=== PATIENT | female | born 1960 | race Caucasian/White ===

== ENCOUNTER 2016-06-06 10:00 | Inpatient (IN) | payer BC ==
[2016-06-02 14:06] VITALS: BMI 26.9
--- NOTE | 2016-06-02 14:38 | PAT Medication Instructions ---
Service Date Jun 02, 2016. Current Home Medication List Amlodipine (Norvasc), 5 MG PO QAM Calcium Carbonate-Cholecalcife (Caltrate 600+D), 1 TAB PO QAM Docusate Sodium (Docusate Sodium), 2 CAP PO QAM Esomeprazole Magnesium (Nexium), 40 MG PO QAM Hydrocodone/Acetaminophen 10MG/325MG ([place] 10MG/325MG), 1-2 TABS PO Q4H PRN for Pain Meloxicam (Mobic), 7.5 MG PO BID Morphine Sulfate (Ms Contin), 30 MG PO Q12 PRN for Pain Multivitamin (Multivitamin), 1 TAB PO QAM Probiotic Product (Probiotic), 1 CAP PO QAM Rosuvastatin Calcium (Crestor), 5 MG PO HS Medication Instructions For Your Scheduled Surgery - Hold the following medications the morning of surgery: Multivitamin (Multivitamin), 1 TAB PO QAM Probiotic Product (Probiotic), 1 CAP PO QAM Calcium Carbonate-Cholecalcife (Caltrate 600+D), 1 TAB PO QAM Docusate Sodium (Docusate Sodium), 2 CAP PO QAM Meloxicam (Mobic), 7.5 MG PO BID (not told to stop by surgeon) - Take the following medications the morning of surgery with a sip of water: Morphine Sulfate (Ms Contin), 30 MG PO Q12 PRN for Pain (can take up to four hours prior to surgery if needed) Hydrocodone/Acetaminophen 10MG/325MG ([place] 10MG/325MG), 1-2 TABS PO Q4H PRN for Pain (can take up to four hours prior to surgery if needed) Esomeprazole Magnesium (Nexium), 40 MG PO QAM Amlodipine (Norvasc), 5 MG PO QAM - Take the following medications as scheduled the night before surgery: Rosuvastatin Calcium (Crestor), 5 MG PO HS Morphine Sulfate (Ms Contin), 30 MG PO Q12 PRN for Pain Hydrocodone/Acetaminophen 10MG/325MG ([place] 10MG/325MG), 1-2 TABS PO Q4H PRN for Pain Meloxicam (Mobic), 7.5 MG PO BID If you have any questions please call us at [phone] or [phone] ( Heidi) or [phone]
[2016-06-02 14:47] VITALS: BMI 26.0
[2016-06-02 15:17] LABS: BASO % 0.3 %; BASO ABS # 0.02 K/uL (0-0.2); COMPLETE YES; EOS % 1.6 %; HEMATOCRIT 40.2 % (37-47); LYMPH ABS # 2.96 K/uL (1.2-3.4); MEAN CELL VOLUME 86.8 fL (80-100); MEAN CORPUSCULAR HEMOGLOBIN 30.2 pg (25-34); MEAN CORPUSCULAR HGB CONC 34.8 g/dl (32-36); MEAN PLATELET VOLUME 8.9 fL (7.4-10.4); MONO % 7.8 %; NEUT % 42.3 %; PLATELET COUNT 280 K/uL (130-400); RED BLOOD COUNT 4.63 M/uL (4.2-5.4); WHITE BLOOD COUNT 6.17 K/uL (4.8-10.8)
[2016-06-02 15:19] LABS: URINE APPEARANCE CLEAR (CLEAR); URINE BILIRUBIN NEG (NEG); URINE COLOR YELLOW; URINE NITRITE NEG (NEG); URINE PH 7.5 (4.5-7.5); URINE SPECIFIC GRAVITY 1.006 (1.000-1.030); UROBILINOGEN NEG (NEG)
[2016-06-02 15:21] LABS: MANUAL MICROSCOPIC REQUIRED? NO; REVIEW REQ? NO
--- NOTE | 2016-06-02 15:33 | DIAGNOSTIC IMAGING REPORT ---
CHEST 2 VIEWS ROUTINE CLINICAL HISTORY: Preoperative evaluation. COMPARISON STUDY: No previous studies for comparison. FINDINGS: Incidental note is made of an anterior cervical spine fusion and cholecystectomy clips. Lung volumes are normal. Lungs are clear. There is no pneumothorax or pleural effusion. Cardiac size is normal. Mediastinal contours are normal. There is no evidence of pulmonary edema. IMPRESSION: No acute cardiopulmonary findings. Electronically signed by: Reinier Cunningham M.D. 06/02/2016 3:31 PM Dictated Date/Time: 06/02/2016 3:30 PM
[2016-06-02 15:50] LABS: BUN/CREATININE RATIO 19.6 (10-20); CALCIUM 8.8 mg/dl (8.5-10.1); CREATININE 0.68 mg/dl (0.60-1.20); POTASSIUM 3.9 mmol/L (3.5-5.1)
[2016-06-06] VITALS (7 sets, daily range): BP systolic 109–128; BP diastolic 65–82; PULSE 73–102; TEMP 36.7–36.9; O2SAT 97–100; Ht 147.3 cm; Wt 58.3 kg
[~2016-06-06] VITALS: Ht 147.3 cm; Wt 58.3 kg
[~2016-06-06 10:00] MED LIST: AMLO-110 PO; CALC-354 PO; CEFAZOLIN 2000 MG/60 ML D5W 60 ML IV SCH; CeleBREX 200 MG CAP PO SCH; DOCU100C31 PO; HYDR-4079 PO; LACTATED RINGER'S 1000ML 1,000 ML IV SCH; MELO7.5T5 PO; MISCCAP80 PO; MORP30TA23 PO; MULT-506 PO; NXM/40 PO; PREGABALIN 75 MG CAP PO SCH; ROSU5TAB PO
[2016-06-06] MEDS ORDERED: ONDANSETRON INJ 2 MG/ML 2 ML VIAL IV PRN ×2 (10:15→14:30)
[2016-06-06] MEDS ORDERED: EpHEDrine SULFATE INJ 50 MG/ML AMP IV PRN (10:15)
[2016-06-06] MEDS ORDERED: ATROPINE SULFATE 0.1 MG/ML 5ML SYR IV PRN (10:15)
--- NOTE | 2016-06-06 12:07 | History and Physical ---
History & Physical Date Jun 06, 2016. Chief Complaint LBP and left leg pain History of Present Illness The patient is a 56 year old female with complaints of above who has severe pain due to a L foraminal HNP with L3 nerve root compression. Her pain could not be controlled as outpatient with oral steroids or narcotics. mild trouble walking due to LLE weakness. Past Medical/Surgical History HTN hi chol GERD cervical fusion hx tob use knee surgery csections Additional History Hepatic Disease: No Endocrine Disorder: No Kidney Disease: No Hypertension: Yes Heart Disease: No Bleeding Tendencies: No Infectious Diseases: No Allergies Coded Allergies: Adhesives (Verified Allergy, Mild, RED RASH AND SORE BLISTER, 06/06/16) Meperidine (Verified Allergy, Mild, VOMITTING, 06/06/16) Home Medications Scheduled Amlodipine (Norvasc), 5 MG PO QAM Calcium Carbonate-Cholecalcife (Caltrate 600+D), 1 TAB PO QAM Docusate Sodium (Docusate Sodium), 2 CAP PO QAM Esomeprazole Magnesium (Nexium), 40 MG PO QAM Meloxicam (Mobic), 7.5 MG PO BID Multivitamin (Multivitamin), 1 TAB PO QAM Probiotic Product (Probiotic), 1 CAP PO QAM Rosuvastatin Calcium (Crestor), 5 MG PO HS Scheduled PRN Hydrocodone/Acetaminophen 10MG/325MG ([place] 10MG/325MG), 1-2 TABS PO Q4H PRN for Pain Morphine Sulfate (Ms Contin), 30 MG PO Q12 PRN for Pain Physical Examination Skin: warm/dry Eyes: normal inspection ENT: normal ENT inspection Head: normocephalic, atraumatic Neck: supple, trachea midline Respiratory/Chest: lungs clear, no respiratory distress Cardiovascular: regular rate, rhythm Back: normal inspection Extremities: normal inspection, normal range of motion Neurologic/Psych: no motor/sensory deficits, alert, normal reflexes, oriented x 3 Diagnosis L L3-4 foraminal HNP Plan of Treatment L3-4 laminectomy, facetectomy and fusion
[2016-06-06] MEDS ORDERED: MIDAZOLAM HCL 1 MG/ML 2ML VIAL ONE (12:18)
[2016-06-06] MEDS ORDERED: FENTANYL CITRATE INJ 50 MCG/1 ML 2 ML VIAL ONE (12:18)
[2016-06-06] MEDS ORDERED: GLYCOPYRROLATE INJ 0.2 MG/ML VIAL ONE (13:16)
[2016-06-06] MEDS ORDERED: ONDANSETRON INJ 2 MG/ML 2 ML VIAL ONE (13:16)
[2016-06-06] MEDS ORDERED: DEXAMETHASONE SOD INJ 4 MG/ML VIAL ONE (13:16)
[2016-06-06] MEDS ORDERED: PROPOFOL IV EMULSION 10 MG/ML 20 ML VIAL IV ONE (13:16)
[2016-06-06] MEDS ORDERED: NEOSTIGMINE METHYLSULFATE 1 MG/ML 10ML VIAL ONE (13:16)
[2016-06-06] MEDS ORDERED: LIDOCAINE HCL 2% 2 ML VIAL (20MG/ML) ONE (13:16)
[2016-06-06] MEDS ORDERED: ROCURONIUM BROMIDE 10 MG/ML 5 ML VIAL ONE (13:16)
[2016-06-06] MEDS ORDERED: THROMBIN FOR SOLN 20000 UNIT KIT TOP ONE (13:35)
[2016-06-06] MEDS ORDERED: THROMBIN 5000 UNITS KIT TOP ONE (13:35)
[2016-06-06] MEDS ORDERED: BUPIVACAINE/EPINEPHRINE 0.5% MPF 1:200,000 30 ML VIAL INJ ONE (13:35)
[2016-06-06] MEDS ORDERED: BACITRACIN 50000 UNIT VIAL IR ONE (13:35)
[2016-06-06] MEDS ORDERED: PHENYLEPHRINE 100MCG/ML 5ML SYR ONE (13:39)
[2016-06-06] MEDS ORDERED: FLOSEAL HEMOSTATIC MATRIX 10ML TOP ONE (14:07)
[2016-06-06] MEDS ORDERED: HYDR-4079 PO (14:12)
--- NOTE | 2016-06-06 14:13 | Discharge Instructions ---
Discharge Instructions Admission Reason for Admission: Lumbar Spinal Stenosis Discharge Discharge Diagnosis / Problem: Lumbar Stenosis Discharge Goals Goal(s): Decrease discomfort, Improve function, Increase independence Activity Recommendations Activity Limitations: as noted below Lifting Limitations: no more than 5 pounds Exercise/Sports Limitations: until after follow-up appointment May Resume Sexual Activity: after follow-up appointment Shower/Bathe: may shower/bathe in 3 days . Instructions / Follow-Up Instructions / Follow-Up ACTIVITY RECOMMENDATIONS: SELF CARE INSTRUCTIONS AFTER THORACIC/LUMBAR FUSIONS 1. You may walk to your tolerance. It is good exercise for your legs and back. Expect some back and intermittent leg aches and pains. 2. You may perform "counter-top" level activities (make a sandwich, kellen with a project, etc.). 3. No bending or lifting of more than 10 pounds or back twisting of any nature (roll like a log when turning in bed). 4. You may ride in a car for 20-30 minutes at a time. No driving until after your first visit with your doctor. 5. Frequent changes of position and restricting sitting to 30 minutes at a time will help limit the amount of back spasms and stiffness you may experience. 6. You may discontinue the use of ambulatory aids (cane, crutches, etc.) once your strength and confidence allow. 7. You may petroleum inspector supervisor the shower and let water strike your incision when you arrive home at least once daily. Do not take a tub bath, sit in a hot tub or go into a swimming pool until after your first recheck in the office. SPECIAL CARE INSTRUCTIONS: VERY IMPORTANT TO READ AND REVIEW A. Your surgical incision has been closed with a cosmetic suture under the skin that will dissolve in about 6 weeks. In 14 days, you can use a pair of clean scissors and cut the suture that is left outside of the skin at the ends of your incision. 1. The small skin tapes can be removed 7 days after surgery if they have not fallen off by that point. 2. You may keep the wound open to air as much as possible to promote healing after post-op day number 5 unless told otherwise by your doctor. 3. If you think the wound looks like it is becoming infected (redness or worsening drainage) and/or you are experiencing fever, chill or worsening back pain and muscle spasms, contact the office so that we may evaluate you as soon as possible. B. Complications are uncommon, but please contact us if you have any signs or symptoms of: 1. wound infection (fever higher than 102.5 degrees F, redness, separation of wound, drainage, or increasing pain from the incision) 2. blood clots in legs (pain, swelling, redness and warmth in legs) 3. urinary tract infection (fever higher than 102.5 degrees F, burning upon urination or increased frequency of urination) 4. nerve problems (inability to walk on your toes or heels, numbness, loss of bowel or bladder control) 5. any other symptoms that concern you C. Please call the office at if you have any concerns or questions about your operation or recovery. D. No smoking! Smoking drastically decreases the chance of a solid fusion. E. Do not take any anti-inflammatory medications (Indocin, Advil, Motrin, Aspirin, Naprosyn, etc.) as these may inhibit the chance of a solid fusion. Tylenol is okay to take for pain. MANAGING PAIN AFTER SPINAL SURGERY 1. Narcotic medication is intended for short-term use and will be provided for surgical pain. Surgical pain usually lasts for a period of 4-6 weeks. Narcotic medication includes Percocet, Vicodin, Darvocet, Tylenol #3 or Lortab. 2. Longer-term pain is more appropriately treated with non-narcotic medication such as Tylenol ES. 3. Muscle spasm is not appropriately treated with narcotics. Muscle relaxers such as Soma, Flexeril or Skelaxin can be used along with Tylenol ES. 4. Remember that we all live with some "aches and pains". This is not unusual or uncommon after an injury or as we get older. a. Back pain is expected and may include muscle spasms for 4 to 6 weeks after surgery. The pain should gradually improve. If the pain worsens for no apparent reason, please contact the office. b. Intermittent leg pain may also be experienced and should not be concerned about unless it worsens for no apparent reason. If so, please contact the office. 5. We will provide appropriate medication within the normal guidelines of their prescribed use. We will also be very cautious and aware of potential abuse and extended duration of patients' medication needs. a. Pain medications are for your comfort and to assist with sleep and rest so that the tissue can heal. They are not provided in order to return to normal activity and should not be used through the day. To do so or worsening pain at night can result from ongoing tissue damage and development of tolerance to the prescribed medicine. 6. Please allow 2-3 days to process refills. Prescriptions will not be mailed but must be picked up at the office. FOLLOW UP VISIT: Keep your scheduled follow-up appointment. Any questions, please call the office at . Current Hospital Diet Patient's current hospital diet: Discharge Diet Recommended Diet: Regular Diet Procedures Procedures Performed: L3-L4 Decompression, Posterior Spinal Fusion, Instrumentation, Interbody Fusion With Application of Interbody Cage at L3-L4; Ateriocyte Pending Studies Studies pending at discharge: no Medical Emergencies . Who to Call and When: Medical Emergencies: If at any time you feel your situation is an emergency, please call 911 immediately. . Non-Emergent Contact Non-Emergency issues call your: Surgeon Call Non-Emergent contact if: temperature is above 101, your pain is not controlled, your pain is worsening, your pain is unusual for you, your pain is concerning you, wound has increased drainage, wound has increased redness, wound has increased pain, you have any medication questions . "Provider Documentation" section prepared by Cas Basurto. VTE Core Measure Inpt VTE Proph given/why not?: Goldie Nolasco
[2016-06-06] MEDS: SODIUM CHLORIDE 0.9% 1000ML 1,000 ML IV SCH (14:19)
[2016-06-06] MEDS ORDERED: SODIUM CHLORIDE 0.9% 1000ML 1,000 ML IV SCH (14:19)
--- NOTE | 2016-06-06 14:19 | [facility] Post Operative Brief Note ---
Immediate Operative Summary Operative Date Jun 06, 2016. Pre-Operative Diagnosis Left L3-4 foraminal herniated nucleus pulposus Post-Operative Diagnosis Same as pre-operative diagnosis Procedure(s) Performed L3-L4 Decompression, Posterior Spinal Fusion, Instrumentation, Interbody Fusion With Application of Interbody Cage at L3-L4; Ateriocyte Surgeon Dr. Juice Rueda Production Mechanic Surgeon(s) Cas Basurto PA-C Estimated Blood Loss 200ml Findings dict Specimens None per surgeon
[2016-06-06] MEDS: FENTANYL CITRATE INJ 50 MCG/1 ML 2 ML VIAL IV PRN ×4 (14:21→14:36)
[2016-06-06] MEDS ORDERED: NALOXONE HCL 0.4 MG/1 ML VIAL/CARP IV PRN ×2 (14:30)
[2016-06-06] MEDS ORDERED: METOCLOPRAMIDE HCL INJ 5 MG/ML 2 ML VIAL IV PRN (14:30)
[2016-06-06] MEDS ORDERED: hydrOXYzine HCL 25 MG TAB PO PRN (14:30)
[2016-06-06] MEDS ORDERED: PROMETHAZINE HCL INJ 12.5 MG in SODIUM CHLORIDE 0.9% 50ML 50 ML IV PRN (14:30)
[2016-06-06] MEDS ORDERED: HYDROmorphone HCL 0.5MG/ML 50 ML CASSETTE IV PRN (14:30)
[2016-06-06] MEDS ORDERED: FAMOTIDINE 20 MG TAB PO PRN (14:30)
[2016-06-06] MEDS ORDERED: MoRPHine SULFATE CR 15 MG TAB (MS CONTIN) PO PRN (14:30)
[2016-06-06] MEDS ORDERED: ALUMINUM/MAGNESIUM SUSP 30 ML UDC PO PRN (14:30)
[2016-06-06] MEDS ORDERED: LORAZEPAM INJ 0.5 MG in SYRINGE 0.75 ML IV PRN (14:30)
[2016-06-06] MEDS ORDERED: SOD PHOSPHATE/SOD BIPHOSPHATE ENEMA 132 ML BTL PR PRN (14:30)
[2016-06-06] MEDS ORDERED: BISACODYL 10 MG SUPP PR PRN (14:30)
[2016-06-06] MEDS ORDERED: LORAZEPAM 0.5 MG TAB PO PRN (14:30)
--- NOTE | 2016-06-06 14:35 | DIAGNOSTIC IMAGING REPORT ---
INTRAOPERATIVE LUMBAR SPINE 2 VIEWS CLINICAL HISTORY: L3-4 DECOMPRESSION/FUSION/INTERBODY COMPARISON STUDY: No previous studies for comparison. FINDINGS: 10 seconds of fluoroscopic time was utilized. There are postsurgical changes of an L4 3-4 discectomy and interbody fusion. There is posterior pedicle hardware fixation. There is minimal retrolisthesis of L3 on L4. IMPRESSION: Postsurgical changes at the L3-4 level. Electronically signed by: Júnior Rivas M.D. 06/06/2016 2:33 PM Dictated Date/Time: 06/06/2016 2:31 PM
[2016-06-06] MEDS: HYDROmorphone INJ 1 MG/ML SYR IV PRN ×4 (14:41→14:56)
[2016-06-06] MEDS ORDERED: HYDROmorphone HCL 0.5MG/ML 50 ML CASSETTE ONE (14:45)
--- NOTE | 2016-06-06 15:29 | Anesthesiology Progress Note ---
Anesthesia Post Op Note Date & Time Jun 06, 2016 at 15:29 Vital Signs Vital Signs Past 12 Hours Date Time Temp Pulse Resp B/P Pulse Ox O2 Delivery O2 Flow Rate FiO2 06/06/16 15:15 36.7 64 12 135/73 100 Nasal Cannula 4 06/06/16 15:05 62 14 126/79 100 Nasal Cannula 4 06/06/16 14:55 64 15 120/71 96 Nasal Cannula 4 06/06/16 14:45 81 14 128/80 97 Nasal Cannula 4 06/06/16 14:35 73 20 129/66 92 Nasal Cannula 4 06/06/16 14:25 79 15 102/75 100 Mask 10 06/06/16 14:18 36.7 89 16 131/70 100 Mask 10 06/06/16 10:33 36.8 73 18 128/82 97 Room Air Notes Mental Status: alert / awake / arousable, participated in evaluation Pt Amnestic to Procedure: Yes Nausea / Vomiting: adequately controlled Pain: adequately controlled Airway Patency, RR, SpO2: stable & adequate BP & HR: stable & adequate Hydration State: stable & adequate Anesthetic Complications: no major complications apparent
--- NOTE | 2016-06-06 15:58 | OPERATIVE REPORT ---
DATE OF OPERATION: 06/06/2016 PREOPERATIVE DIAGNOSES: L3-L4 foraminal disc herniations -- left. POSTOPERATIVE DIAGNOSIS: Same. PROCEDURES: 1. L3 laminectomy with left L3-L4 facetectomy. 2. Nonsegmental pedicle screw instrumentation -- bilateral L3 and L4 with K2M [place] pedicle screws. 3. Posterolateral fusion L3-L4 -- bilateral with Infuse BMP on a collagen sponge, tricalcium phosphate, local bone, bone putty and bone marrow aspirate. 4. Left L3-L4 transforaminal lumbar interbody fusion with K2M titanium mesh 3D preprinted cage, bone putty and bone marrow aspirate. 5. Right iliac crest bone marrow aspiration stem cell concentration with Arteriocyte system. SURGEON: Dr. Rueda. EDI ARCHITECT: Cas Basurto PA-C. Please note he participated in all portions of the procedure and was critical for performance of the procedure. Participated in positioning, prepping, draping, retraction and wound closure. ANESTHESIA: General endotracheal anesthesia. COMPLICATIONS: None. ESTIMATED BLOOD LOSS: 100 mL. DESCRIPTION OF PROCEDURE: After identification of patient and operative level, she was brought to the OR where she underwent induction of general anesthesia. She was then positioned prone on [facility] OR table with all bony prominences well padded. Care was taken to avoid pressure on the periorbital area. Lumbosacral area was sterilely prepped and draped in usual fashion. Antibiotics were administered. Time-out was performed. Level was confirmed and skin incision was infiltrated with Marcaine and epinephrine. I made skin incision from spinous process of L2-L4, exposed posterior elements, placed Gelpi retractors and confirmed level with fluoroscopy and a marker in the lamina of L3. I marked the operative level and then did a laminectomy of L3, removed left L3-L4 facet and performed a left L3-L4 discectomy. There was disc material extending out through the foramen, contacted the nerve root and displacing it. After removal disc material nerve root and returned to its [place] position. I then placed pedicle screws bilaterally at L2 and L3 with K2M [place] pedicle screws. I checked position with fluoroscopy. I then prepared the disc space at L3-L4, topher and curettes for subsequent cage insertion. I aspirated bone marrow from the right iliac crest via separate stab incision with a Jamshidi needle transferred the Arteriocyte system and packed putty and bone graft into the cage using a bone graft digital sales representative and the bone marrow aspirate. I then tamped the cage into position, had good stability following insertion. I then lowered the Fer frame and applied rods and endcaps from L3-L4 bilaterally. Final tightened all endcaps, then irrigated with bacitracin solution. I decorticated the transverse process of L3 and L4 with a high speed claire as well as facets and then packed the lateral gutters with bone graft mixture as above. Please note I did not use Infuse in this patient the quality seemed be adequate and I had a good bone graft from the facetectomy. I then closed in layered fashion over SIRIA drain. All sponge and needle counts were correct at the end of the case. I attest to the content of the Intraoperative Record and any orders documented therein. Any exceptio ns are noted below.
[2016-06-06] MEDS: CEFAZOLIN IV 1,000 MG in DEXTROSE 5% 50ML 50 ML IV SCH (19:56)
[2016-06-06] MEDS: DOCUSATE SODIUM/SENNA 50/8.6MG TAB PO SCH (20:14)
[2016-06-06] MEDS: DEXAMETHASONE INJ 6 MG in SYRINGE 0 ML IV SCH (21:43)
[2016-06-07] VITALS (7 sets, daily range): BP systolic 92–113; BP diastolic 52–69; PULSE 70–81; TEMP 36.3–36.8; O2SAT 94–99
[2016-06-07] MEDS: SODIUM CHLORIDE 0.9% 1000ML 1,000 ML IV SCH (03:35)
[2016-06-07] MEDS: CEFAZOLIN IV 1,000 MG in DEXTROSE 5% 50ML 50 ML IV SCH (03:36)
[2016-06-07] MEDS: DEXAMETHASONE INJ 6 MG in SYRINGE 0 ML IV SCH ×2 (04:36→13:18)
[2016-06-07] MEDS: ACETAMINOPHEN IV 100 ML IV PRN (05:04)
[2016-06-07] MEDS ORDERED: DC PCA SCH (06:00)
[2016-06-07 06:09] LABS: HEMATOCRIT 31.4 % (37-47); MEAN CELL VOLUME 85.8 fL (80-100); MEAN CORPUSCULAR HEMOGLOBIN 29.8 pg (25-34); MEAN CORPUSCULAR HGB CONC 34.7 g/dl (32-36); PLATELET COUNT 246 K/uL (130-400); RED BLOOD COUNT 3.66 M/uL (4.2-5.4); WHITE BLOOD COUNT 11.98 K/uL (4.8-10.8)
[2016-06-07 06:10] LABS: BASO % 0.1 %; BASO ABS # 0.01 K/uL (0-0.2); COMPLETE YES; IG% 0.3 %; LYMPH % 4.4 %; LYMPH ABS # 0.53 K/uL (1.2-3.4); MONO % 3.3 %; NEUT % 91.9 %
[2016-06-07 06:33] LABS: BUN/CREATININE RATIO 17.1 (10-20); CALCIUM 8.3 mg/dl (8.5-10.1); CREATININE 0.68 mg/dl (0.60-1.20); POTASSIUM 4.2 mmol/L (3.5-5.1)
[2016-06-07] MEDS ORDERED: NURSING VERBAL MED ORDER ONE (07:15)
[2016-06-07] MEDS: PANTOprazole SOD 40 MG TAB PO SCH (08:07)
[2016-06-07] MEDS: AMLODIPINE BESYLATE 5 MG TAB PO SCH (08:08)
[2016-06-07] MEDS: OXYCODONE HCL IR 5 MG TAB (IMMEDIATE RELEASE) PO PRN ×4 (08:17→23:40)
--- NOTE | 2016-06-07 09:43 | Orthopedic Progress Note ---
Orthopedic Progress Note Date of Service Jun 07, 2016. Subjective Post OP Day: 1 Reports: feeling well, pain controlled w PO medications, Denies: SOB, calf pain , chest pain, complaints, light headedness, nausea / vomiting Additional Notes: Stable medically with no new issues to report today Objective calves soft nontender, N/V intact, dressing C/D/I, A&O x3, toes mobile, hemovac drainage Date Time Temp Pulse Resp B/P Pulse Ox O2 Delivery O2 Flow Rate FiO2 06/07/16 08:00 Room Air 06/07/16 06:59 36.6 77 16 92/52 94 Room Air 06/07/16 04:40 77 95 Room Air 06/07/16 03:05 36.8 77 16 102/62 99 Nasal Cannula 4.0 06/06/16 23:55 36.7 86 16 111/72 99 Nasal Cannula 4.0 06/06/16 23:30 Nasal Cannula 4.0 06/06/16 19:15 36.9 102 16 113/72 100 Nasal Cannula 4.0 06/06/16 18:42 84 16 120/82 100 Nasal Cannula 4.0 06/06/16 17:50 76 16 109/65 100 Nasal Cannula 4.0 06/06/16 16:38 36.9 80 16 115/73 100 Nasal Cannula 4.0 06/06/16 15:50 Nasal Cannula 4.0 06/06/16 15:50 36.9 16 115/75 97 Nasal Cannula 4.0 06/06/16 15:50 Nasal Cannula 4.0 06/06/16 15:25 71 12 125/77 100 Nasal Cannula 4 06/06/16 15:15 36.7 64 12 135/73 100 Nasal Cannula 4 06/06/16 15:05 62 14 126/79 100 Nasal Cannula 4 06/06/16 14:55 64 15 120/71 96 Nasal Cannula 4 06/06/16 14:45 81 14 128/80 97 Nasal Cannula 4 06/06/16 14:35 73 20 129/66 92 Nasal Cannula 4 06/06/16 14:25 79 15 102/75 100 Mask 10 06/06/16 14:18 36.7 89 16 131/70 100 Mask 10 06/06/16 10:33 36.8 73 18 128/82 97 Room Air Laboratory Results 24 Hours: Test 06/07/16 05:48 White Blood Count 11.98 K/uL Red Blood Count 3.66 M/uL Hemoglobin 10.9 g/dL Hematocrit 31.4 % Mean Corpuscular Volume 85.8 fL Mean Corpuscular Hemoglobin 29.8 pg Mean Corpuscular Hemoglobin Concent 34.7 g/dl Platelet Count 246 K/uL Mean Platelet Volume 9.0 fL Neutrophils (%) (Auto) 91.9 % Lymphocytes (%) (Auto) 4.4 % Monocytes (%) (Auto) 3.3 % Eosinophils (%) (Auto) 0.0 % Basophils (%) (Auto) 0.1 % Neutrophils # (Auto) 11.01 K/uL Lymphocytes # (Auto) 0.53 K/uL Monocytes # (Auto) 0.40 K/uL Eosinophils # (Auto) 0.00 K/uL Basophils # (Auto) 0.01 K/uL Assessment & Plan Assessment: s/p lumbar decompression and fusion Plan: Pain control, PT, DVT prophylaxis, Disposition pending at this point
--- NOTE | 2016-06-07 09:49 | Anesthesiology Progress Note ---
Anesthesia Post Op Note Date & Time Jun 07, 2016 at 09:48 Vital Signs Pain Intensity: 8.0 Vital Signs Past 12 Hours Date Time Temp Pulse Resp B/P Pulse Ox O2 Delivery O2 Flow Rate FiO2 06/07/16 08:00 Room Air 06/07/16 06:59 36.6 77 16 92/52 94 Room Air 06/07/16 04:40 77 95 Room Air 06/07/16 03:05 36.8 77 16 102/62 99 Nasal Cannula 4.0 06/06/16 23:55 36.7 86 16 111/72 99 Nasal Cannula 4.0 06/06/16 23:30 Nasal Cannula 4.0 Notes Mental Status: alert / awake / arousable, participated in evaluation Pt Amnestic to Procedure: Yes Nausea / Vomiting: adequately controlled Pain: adequately controlled Airway Patency, RR, SpO2: stable & adequate BP & HR: stable & adequate Hydration State: stable & adequate Anesthetic Complications: no major complications apparent
[2016-06-07] MEDS: HYDROmorphone INJ 0.5 MG/0.5 ML SYR IV PRN ×2 (13:17→18:51)
[2016-06-07] MEDS: MAGNESIUM HYDROXIDE SUSP 30 ML UDC PO PRN (18:50)
[2016-06-07] MEDS: DOCUSATE SODIUM/SENNA 50/8.6MG TAB PO SCH (20:53)
[2016-06-08] MEDS: AMLODIPINE BESYLATE 5 MG TAB PO SCH (03:22)
[2016-06-08] MEDS: HYDROmorphone INJ 0.5 MG/0.5 ML SYR IV PRN ×3 (03:22→15:40)
[2016-06-08] MEDS: POLYETHYLENE (MIRALAX) 17 GM PACK PO SCH ×4 (06:02→23:22)
[2016-06-08 06:08] VITALS: BP 98/62; PULSE 77; TEMP 36.9; O2SAT 98
[2016-06-08] MEDS: PANTOprazole SOD 40 MG TAB PO SCH (07:46)
[2016-06-08] MEDS: OXYCODONE HCL IR 5 MG TAB (IMMEDIATE RELEASE) PO PRN ×2 (07:54→13:32)
[2016-06-08] MEDS: ACETAMINOPHEN IV 100 ML IV PRN ×2 (07:59→20:46)
[2016-06-08] MEDS ORDERED: KETOROLAC TROMETHAMINE 30 MG/ML VIAL ONE (10:33)
[2016-06-08] MEDS: KETOROLAC TROMETHAMINE 30 MG/ML VIAL IV. SCH ×3 (10:35→23:21)
--- NOTE | 2016-06-08 12:15 | Orthopedic Progress Note ---
Orthopedic Progress Note Date of Service Jun 08, 2016. Subjective Additional Notes: Doing well with good progress. Pain is present but controlled with medication. Medically stable. No issues to report. Objective calves soft nontender, N/V intact, capillary refill less than 2 sec., dressing C /D/I, A&O x3, toes mobile, hemovac drainage Date Time Temp Pulse Resp B/P Pulse Ox O2 Delivery O2 Flow Rate FiO2 06/08/16 08:30 Room Air 06/08/16 06:08 36.9 77 16 98/62 98 Room Air 06/07/16 23:26 Room Air 06/07/16 23:17 36.7 70 16 113/68 97 Room Air 06/07/16 15:30 96 Room Air 4.0 06/07/16 15:03 36.3 77 18 109/69 96 Room Air Assessment & Plan Assessment: s/p lumbar decompression and fusion Plan: Pain control, PT, DVT prophylaxis, Expect discharge tomorrow
[2016-06-08] MEDS: MAGNESIUM HYDROXIDE SUSP 30 ML UDC PO PRN (13:32)
[2016-06-08 16:08] VITALS: BP 119/72; PULSE 72; TEMP 36.8; O2SAT 98
[2016-06-08] MEDS: DOCUSATE SODIUM/SENNA 50/8.6MG TAB PO SCH (21:00)
[2016-06-08 22:57] VITALS: BP 102/67; PULSE 70; TEMP 36.7; O2SAT 98
[2016-06-09] MEDS: OXYCODONE HCL IR 5 MG TAB (IMMEDIATE RELEASE) PO PRN ×2 (02:31→08:21)
[2016-06-09] MEDS: HYDROmorphone INJ 0.5 MG/0.5 ML SYR IV PRN (03:16)
[2016-06-09] MEDS: POLYETHYLENE (MIRALAX) 17 GM PACK PO SCH (05:24)
[2016-06-09] MEDS: KETOROLAC TROMETHAMINE 30 MG/ML VIAL IV. SCH ×2 (05:24→12:09)
[2016-06-09] MEDS ORDERED: NURSING DECISION MEDICATION ORDER SCH (07:15)
[2016-06-09 07:25] VITALS: BP 106/65; PULSE 75; TEMP 36.7; O2SAT 96
--- NOTE | 2016-06-09 07:36 | Orthopedic Progress Note ---
Orthopedic Progress Note Date of Service Jun 09, 2016. Subjective Post OP Day: 1 Reports: feeling well, pain controlled w PO medications, Denies: SOB, calf pain , chest pain, complaints, light headedness, nausea / vomiting Objective calves soft nontender, N/V intact, capillary refill less than 2 sec., dressing C /D/I, A&O x3, toes mobile, hemovac drainage Date Time Temp Pulse Resp B/P Pulse Ox O2 Delivery O2 Flow Rate FiO2 06/08/16 23:20 Room Air 06/08/16 22:57 36.7 70 16 102/67 98 Room Air 06/08/16 16:08 36.8 72 18 119/72 98 Room Air 06/08/16 15:30 Room Air 06/08/16 08:30 Room Air Assessment & Plan Assessment: s/p lumbar decompression and fusion Plan: Pain control, PT, DVT prophylaxis, Discharge today
[2016-06-09] MEDS: ACETAMINOPHEN IV 100 ML IV PRN (08:19)
[2016-06-09] MEDS: PANTOprazole SOD 40 MG TAB PO SCH (08:21)
[2016-06-09] MEDS: AMLODIPINE BESYLATE 5 MG TAB PO SCH (08:22)
[2016-06-09 11:42] VITALS: BP 106/65; PULSE 75; TEMP 36.7; O2SAT 96
[2016-06-09] MEDS ORDERED: HYDROmorphone INJ 1 MG/ML SYR IV PRN (12:15)
--- NOTE | 2016-06-21 12:28 | DISCHARGE SUMMARY ---
PRINCIPAL DIAGNOSIS: Includes L3-L4 foraminal disc herniation on left. POSTOPERATIVE DIAGNOSIS: Same. PROCEDURE: L3-L4 decompression and instrumented fusion. SURGEON: Dr. Juice Rueda. RETAIL LOAN ORIGINATOR: Cas Basurto PA-C. HISTORY OF PRESENT ILLNESS: Please refer to EMR. HOSPITAL COURSE: On 06/06/2016, Ms. Ambriz was admitted to [facility] with the above diagnosis. She was taken to preoperative holding where she was identified, evaluated and cleared for surgical procedure. She was identified by Dr. Juice Rueda who again reviewed the procedure in detail. She was transported to the operating room, introduced with general endotracheal anesthesia. Sterile conditions were set and she successfully underwent the above procedure without complication or issue. She was awakened in stable and satisfactory condition, transported to postoperative recovery. Her vital signs and pain were monitored and managed. She remained medically stable and was taken to the orthopedic floor for continued postoperative care. Throughout her stay, vital signs, labs and pain were monitored and managed effectively through physician direction. She completed physical therapy with noted progress. DVT prophylactic measures were taken. SIRIA output significantly diminished. On the above discharge date, she was evaluated by her provider and indicated for return home. On that date, she was discharged from [facility]. DISPOSITION: Home. DISPOSITION CONDITION: Stable. NOTED COMPLICATIONS OR ISSUES: Zero. DISCHARGE INSTRUCTIONS: Please refer to EMR.
== END 2016-06-09 12:30 | disposition home or self-care (01) | DRG 460 ==
LOC: ENRESERVDT → ENRESERVTM → C.ACU 10:00 → C.3E 10:23
PROVIDERS: ADMIT Orthopaedic Surgery Orthopaedic Surgery of the Spine; ATTEND Orthopaedic Surgery Orthopaedic Surgery of the Spine
PROC: 07DR3ZZ Extraction of Iliac Bone Marrow, Percutaneous Approach (ICD-10-PCS; principal; 2016-06-06 12:10)
PROC: 0SG10AJ Fusion of 2 or more Lumbar Vertebral Joints with Interbody Fusion Device, Posterior Approach, Anterior Column, Open Approach (ICD-10-PCS; principal; 2016-06-06 12:10)
PROC: 0ST40ZZ Resection of Lumbosacral Disc, Open Approach (ICD-10-PCS; principal; 2016-06-06 12:10)
PROC: 3E0V0GB Introduction of Recombinant Bone Morphogenetic Protein into Bones, Open Approach (ICD-10-PCS; principal; 2016-06-06 12:10)
DX: M51.26 Other intervertebral disc displacement, lumbar region (principal); K21.9 Gastro-esophageal reflux disease without esophagitis; I10 Essential (primary) hypertension; E78.00 Pure hypercholesterolemia, unspecified